=== PATIENT | female | born 1935 | race Caucasian/White ===

== ENCOUNTER 2017-02-21 08:48 | Emergency (ER) | payer MEDICARE ==
[~2017-02-21] VITALS: Ht 165.1 cm; Wt 98.4 kg
[~2017-02-21 08:48] MED LIST: ALPR0.25 PO; ARMO90TA PO; ASPI81TA82 PO; ATOR20TA42 PO; FISH1200 PO; SPIRCAP INH; TAB-TAB PO; TRAM50TA PO; VITA500015 PO; [UNRECOGNIZED DRUG - CODE] INH
[2017-02-21 08:53] VITALS: BP 211/97; PULSE 101; RESP 18; TEMP 98.1; O2SAT 92
--- NOTE | 2017-02-21 09:15 | PD ---
HPI Chief Complaint: GI Complaint Time Seen by Provider: 09:05 Travel History International Travel<30 days: No Contact w/Intl Traveler<30days: No Traveled to known affect area: No History of Present Illness HPI patient states that over the last day or so she can't seem to control her bladder, able to walk normally, no weakness. 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 PFSH Past Medical History Asthma: No Autoimmune Disease: No Blood Disorders: No Anxiety: Yes Cancer: Yes (LEFT BREAST) Cardiovascular Problems: No (no hx of HTN) Chemotherapy: No COPD: Yes Diabetes: No Endocrine: Yes Genitourinary: No Hepatitis: No Hiatal Hernia: No Immune Disorder: No Musculoskeletal: Yes (ARTHRITIS, BACK PAIN) Neurologic: Yes (NEUROPATHY LEFT AXILLA) Psychiatric: Yes (ANXIETY) Reproductive: No Respiratory: Yes (copd) Radiation Therapy: Yes Sleep Apnea: No Thyroid Disease: Yes ?: Not Menopausal: Yes Past Surgical History Abdominal Surgery: Yes (APPY,) AICD: No Appendectomy: Yes Cardiac Surgery: No Ear Surgery: No Endocrine Surgery: No Eye Surgery: Yes (RIGHT CATARACT EXTRACT.) Genitourinary Surgery: No Gynecologic Surgery: No Joint Replacement: No Oral Surgery: No Pacemaker: No Thoracic Surgery: No Social History Alcohol Use: No Tobacco Use: No Substance Use: No Allergies-Medications (Allergen,Severity, Reaction): Coded Allergies: No Known Allergies (Verified Adverse Reaction, Unknown, 02/21/17) Reported Meds & Prescriptions Reported Meds & Active Scripts Active Reported Vitamin D3 (Cholecalciferol) 5,000 Unit Tab 5,000 Unit PO DAILY Tramadol Hcl (Tramadol HCl) 50 Mg Tab 50-100 Mg PO Q6H PRN [place] Thyroid (Thyroid) 90 Mg Tab 90 Mg PO DAILY Fish Oil ([place]-3 Fatty Acids) 1,200 Mg Cap 1 Cap PO DAILY Lipitor (Atorvastatin Calcium) 20 Mg Tab 20 Mg PO HS Aspir-81 (Aspirin) 81 Mg Tab 81 Mg PO DAILY Multivitamin (Multivitamins) 1 Tab Tab 1 Tab PO DAILY Spiriva Handihaler (Tiotropium [place]) 18 Mcg Cap 1 Dose INH DAILY DO NOT SWALLOW CAPSULES Serevent Diskus (Salmeterol Xinafoate) 50 Mcg Aer 50 Mcg INH DAILY Alprazolam 0.25 Mg Tab 0.25 Mg PO DAILY PRN Review of Systems Except as stated in HPI: all other systems reviewed are Neg General / Constitutional: No: Fever Eyes: No: Visual changes HENT: No: Headaches Cardiovascular: No: Chest Pain or Discomfort Respiratory: No: Shortness of Breath Gastrointestinal: No: Abdominal Pain Genitourinary: Positive: Urgency, Frequency, Dribbling Musculoskeletal: No: Pain Skin: No Rash Neurologic: No: Weakness Psychiatric: No: Depression Endocrine: No: Polydipsia Hematologic/Lymphatic: No: Easy Bruising Physical Exam Narrative GENERAL: SKIN: Warm and dry. HEAD: Atraumatic. Normocephalic. EYES: Pupils equal and round. No scleral icterus. No injection or drainage. ENT: No nasal bleeding or discharge. Mucous membranes pink and moist. NECK: Trachea midline. No JVD. CARDIOVASCULAR: Regular rate and rhythm. RESPIRATORY: No accessory muscle use. Clear to auscultation. Breath sounds equal bilaterally. GASTROINTESTINAL: Abdomen soft, non-tender, nondistended. MUSCULOSKELETAL: Extremities without clubbing, cyanosis, or edema. No obvious deformities. NEUROLOGICAL: Awake and alert. No obvious cranial nerve deficits. Motor grossly within normal limits. Five out of 5 muscle strength in the arms and legs. Normal speech. PSYCHIATRIC: Appropriate mood and affect; insight and judgment normal. Data Data Last Documented VS Vital Signs Date Time Temp Pulse Resp B/P (MAP) Pulse Ox O2 Delivery O2 Flow Rate FiO2 02/21/17 09:05 20 02/21/17 08:53 98.1 101 211/97 (135) 92 Orders Orders Urinalysis - C+S If Indicated (02/21/17 09:05) Urine Culture (02/21/17 09:05) Labs Laboratory Tests Test 02/21/17 09:05 Urine Collection Type CLEAN CATCH Urine Color YELLOW Urine Turbidity CLEAR Urine pH 5.5 Urine Specific [place] 1.025 Urine Protein 30 mg/dL Urine Glucose (UA) NEG mg/dL Urine Ketones NEG mg/dL Urine Occult Blood SMALL Urine Nitrite NEG Urine Bilirubin NEG Urine Leukocyte Esterase SMALL Urine RBC 4-9 /hpf Urine WBC 9-14 /hpf Urine Squamous Epithelial Cells 0-5 /hpf Microscopic Urinalysis Comment CULTURE INDICATED MDM Medical Decision Making Medical Screen Exam Complete: Yes Emergency Medical Condition: Yes Medical Record Reviewed: Yes Differential Diagnosis uti v urinary incontinence v overactive bladder Narrative Course patient ua c/w uti, on exam no e/o distention noted. not able to assess overactive bladder during uti symptoms will advise patient she followup with urologist if symptoms persist despite abx treatment Diagnosis Primary Impression: UTI Patient Instructions: General Instructions, Urinary Tract Infection in Women ( ED) Scripts Nitrofurantoin Monohydrate Macrocrystals (Macrobid) 100 Mg Cap 100 MG PO BID for Infection for 7 Days, #14 CAP 0 Refills Prov: Gian Khan MD 02/21/17 Disposition: DISCHARGE HOME Condition: Stable Gian Khan MD Feb 21, 2017 09:15
[2017-02-21 09:31] LABS: BLOOD, URINE SMALL (NEG); GLUCOSE,URINE NEG (NEG); KETONE, URINE NEG (NEG); NITRITE,URINE NEG (NEG); PH, URINE 5.5 (5.0-8.5)
[2017-02-21 09:40] LABS: COMMENT (UR) CULTURE INDICATED; CULTURE IF INDICATED CULTURE INDICATED; METHOD OF COLLECTION CLEAN CATCH; SQUAMOUS EPITHELIAL CELL URINE 0-5 /hpf (0-5); URINE COLOR YELLOW (YELLW/STRAW)
[2017-02-21] MEDS ORDERED: MACR100C2 PO (09:50)
[2017-02-21] MEDS ORDERED: SALM50I INH (10:10)
[2017-02-21] MEDS ORDERED: SPIRCAP INH (10:10)
[2017-02-21] MEDS ORDERED: VENTAER INH (10:10)
[2017-02-21] MEDS ORDERED: MULTTAB67 PO (10:10)
[2017-02-21] MEDS ORDERED: ATOR20TA15 PO (10:10)
[2017-02-21] MEDS ORDERED: ASPI-516 CHEW (10:10)
[2017-02-21] MEDS ORDERED: ARMO120T PO (10:10)
[2017-02-21] MEDS ORDERED: ARMO60TA PO (10:10)
[2017-02-21] MEDS ORDERED: ALPR0.25 PO (10:10)
== END 2017-02-21 10:00 | disposition home or self-care (01) ==
LOC: PHED 08:48
DX: N39.0 Urinary tract infection, site not specified (principal); B96.89 Other specified bacterial agents as the cause of diseases classified elsewhere
CPT/HCPCS: 81001; 87086; 99283